=== PATIENT | male | born 1955 | race African-American/Black ===

== ENCOUNTER 2016-03-03 11:41 | Inpatient (IN) ==
[2016-03-03] MEDS ORDERED: Albuterol 2.5 MG/3 ML NEBULIZER ONE (12:16)
[2016-03-03] MEDS ORDERED: CeFAZolin Pre 2,000 MG/100 ML 2,000 MG/100 ML BAG IVPB ONE (12:26)
[2016-03-03] MEDS ORDERED: Lidocaine 1% 20 ML MDV ID ONE (12:26)
[2016-03-03] MEDS ORDERED: Albuterol 2.5 MG/3 ML NEBULIZER IH ONE (12:27)
[2016-03-03] MEDS ORDERED: Ringers Solution, Lactated 1,000 ML IVC SCH ×2 (12:30→20:35)
--- NOTE | 2016-03-03 13:05 | History & Physical Report ---
Date of Encounter: 03/03/16 Time of Encounter: 13:05 24 Hour HP Update - Instructions Instructions: If the History and Physical is less than 30 days old and was completed prior to A.M. admission and or procedure and has NOT been updated on calendar day of procedure please complete this update prior to performing procedure. - Update Patient reports changes in Medical Condition: No Changes in assessment/condition: No Changes in Medication: No Preop tests/diagnostics Reviewed: Yes Pre-Op MRSA Screen: Negative Surgery Remains Indicated: Yes Consent for Planned Operative Procedure(s) Verified: Yes - Pre-Operative Checklist Preoperative Checklist Indicated: No Prophylactic Antibiotic Ordered: Yes Home Medications Include Beta Momo: Yes Beta Momo Taken Today (Day of Surgery): No Beta Momo Taken Yesterday (Day Prior to Surgery): Yes Is VTE Prophylaxis Indicated?: Yes
--- NOTE | 2016-03-03 13:12 | Anesthesia Evaluation PreOp ---
Date of Encounter: 03/03/16 Time of Encounter: 13:00 - Past History Planned Operation: ACDF C5-7 Cardiac History: ND, HTN, Hyperlipidemia, Cardiac Stent (Stent X4 , Stent X 10 August 2015, off Brillinta 5 days) Pulmonary History: Former smoker [employer] History: Denies Any Significant HX Other Medical History: Denies Any Significant HX Anesthesia History: No Prior Anesthetic Complications Alcohol Use: occasionally Drug use: none Medications and Allergies Amlodipine Besylate 10 mg PO DAILY 03/03/16 [History] Aspirin 81 mg PO DAILY 03/03/16 [History] Atorvastatin Calcium [Lipitor] 80 mg PO HS 03/03/16 [History] Carvedilol 3.125 mg PO BID 03/03/16 [History] HYDROcodone/Acet 5/325 mg [[place] 5-325 mg] 1 tab PO Q6H PRN 03/03/16 [History] Lisinopril [Zestril] 40 mg PO DAILY 03/03/16 [History] Nitroglycerin [Nitrostat] 0.4 mg SL Q5M PRN 03/03/16 [History] Pantoprazole Sodium [Protonix] 40 mg PO HS 03/03/16 [History] Ticagrelor [Brilinta] 90 mg PO BID 03/03/16 [History] Trazodone HCl 100 mg PO HS 03/03/16 [History] Allergies No Known Allergies Allergy (Verified 03/03/16 12:35) - Meds/Allergy Pre-op Review Medications Reviewed: Yes Allergies Reviewed: Yes Beta Blockers on Current Med List: Yes (took Coreg today 0800) Anesthesia Results - Labs Laboratory Tests 02/25/16 02/25/16 11:55 11:55 Hgb 13.4 Hct 40.7 Plt Count 369 Sodium 139 Potassium 4.3 BUN 12 Creatinine 1.10 - Imaging EKG: report reviewed (SR poss left atrial enlargement) Additional studies: EF 35% Anesthesia Exam O2 Sat Height 1.8 m Height 1.8 m Height 1.8 m Weight 81.193 kg Weight 81.193 kg Weight 81.193 kg O2 Sat by Pulse Oximetry 95 O2 Sat by Pulse Oximetry 95 O2 Sat by Pulse Oximetry 95 Vital Signs Temp Pulse Resp BP Pulse Ox 97.6 F 66 18 119/79 95 03/03/16 12:08 03/03/16 12:08 03/03/16 12:08 03/03/16 12:08 03/03/16 12:08 Height: 6'0 Weight: 181 lbs NPO (# of Hours): MN - HEENT Pupil (Motor): Pupils equal, EOMI Mallampati: III Teeth: Missing, Poor dentition Oral Opening: Less than or equal to 3 - [employer] LOC: Oriented [employer] Motor: Normal RUE, Normal LUE, Normal RLE, Normal LLE, Normal Face [employer] Sensory: Normal: LUE, RLE, LLE, Face, Deficit: RUE (paresthesia shoulder) - Cardiac Rhythm: Regular Murmur: None JVD: No Carotid Bruit: No - Pulmonary Breath Sounds: bilateral Clear Respiratory Effort: Symmetrical Anesthesia Assess/Plan ASA Score: 3 (CAD ND with stent) Modified Blackstone Scale for Level of Consciousness: Cooperative, oriented, and tranquil Anesthetic Plan: General Monitoring Plan: Standard Monitors, A-Line Recovery Plan: PACU (Discussed GA, agrees to proceed)
--- NOTE | 2016-03-03 17:05 | Orthopedic Operative Note ---
Date of procedure: 03/03/16 Pre-op diagnosis: cervical stenosis, cervical radiculopathy Post-op diagnosis: same Operation/Findings: Anterior cervical decompression and fusion C5-C7: The patient was brought to the operating room and placed supine on the operating room table. Successful general endotracheal anesthesia intubation was performed. Neurophysiologic monitoring personnel placed leads on the upper and lower extremities as well as the cranium for EMG monitoring purposes. Appropriate baseline potentials were noted by the neurophysiologic monitoring staff. Colby catheter was placed prior to positioning. Compression boots and stockings were placed for deep vein thrombosis prophylaxis. Padding was also placed all bony prominences including the ulnar nerve near the medial epicondyles of the elbows were appropriately padded. Mild traction was placed on the bilateral shoulders and taped into place. Preoperative antibiotics were administered. The area from the mandible bilaterally to the upper thoraces was prepped and draped in the usual sterile fashion. A transverse incision was made at the level of the cricoid cartilage which is approximately 3 cm in length and extended from the midline of the cervical spine laterally towards the sternocleidomastoid muscle on the left. We then performed standard medial approach to the carotid sheath. Sponges were used to tease the fascial medial to the sternocleidomastoid muscle while carefully controlling and palpating the carotid artery. Using careful dissection we were able to get to the level of the anterior vertebral bodies and longus coli muscles. The spinal needle was placed at the appropriate C5-6 level, and intraoperative radiograph was obtained which was a cervical spine lateral radiograph. The needle and radiograph confirmed we were at the correct C5-6 operative level. We further exposed this level by using Bovie cautery under the medial edge of the longus colli muscles to allow them to be retracted approximately 2 mm laterally on each side. An 11 blade was used to perform anterior discectomy at the appropriate C5-6 level after an initial annulotomy of the anterior longitudinal ligament and annulus was performed. Further disc material was removed with pituitary Rongeurs. Subsequently, Synthes pins were placed at the C5 and C6 vertebral bodies respectively to provide distraction. We then used a Trimline cervical retractor which was placed in both medial and lateral as well as inferior superior direction to allow full visualization of the appropriate disc and vertebral bodies. The Leica microscope was brought to the field and the remainder of the procedure was performed under the guidance of this microscope. Using pituitary rongeurs and small curettes, various micro-instruments, a full discectomy was performed at the appropriate C5-6 level. The posterior longitudinal ligament was encountered and appeared partially calcified. A portion of this ligament was removed. After complete and thorough discectomy and removal of spondylitic material was performed the endplates of the C5 and C6 vertebral bodies were prepared with a bur until allow bleeding of cancellous bone. A 7mm trial graft was evaluated and appeared to fit quite well within the excised C5-6 disc space. A cortico-cancellous allograft of 7 mm was utilized, carefully tapped into place within the excised disc space with the aid of a bone tamp. It was seated approximately 2 mm from the anterior edge of the cortex of the adjacent vertebral bodies. We then turned our attention to the C6-7 level where a similar series of procedures was performed including discectomy, removal of spondylitic material, end plate preparation, and trial grafting. An 8mm trial fit well within the C6-7 disc space. A 8 mm allograft was then placed at C6-7. A cervical plate was then placed on the anterior aspect of the C5, C6, and C7 vertebral bodies. The plate was placed in the midline position after drilling six 13 mm self tapping screws and inserting them. They were locked in place using standard Venture plate maneuvers. At this point a lateral radiograph of the cervical spine was obtained and showed satisfactory position of the graft and plate. The wound was copiously irrigated and bleeders encountered were cauterized using Bovie cautery. Platysma was closed with interrupted 2-0 Vicryl sutures. Running 3-0 Monocryl suture was used for skin closure. Sterile dressing was placed over the neck wound. A cervical collar was placed. The patient was transferred to a hospital bed and extubated. The patient was noted to be fully motor and sensory intact in the recovery room at the end of the procedure. The medications. All sponge instrument and needle counts were correct at the end of the procedure. Anesthesia: GETA Surgeon: Zechariah Farmer Jr Estimated blood loss (cc): 20 Condition: stable Disposition: PACU
[2016-03-03] MEDS: *HR* HYDROmorphone (PF) 1 MG/ML SYRINGE IVP PRN ×4 (17:29→18:13)
--- NOTE | 2016-03-03 18:21 | Anesthesia Evaluation Post Op ---
Date of Encounter: 03/03/16 Time of Encounter: 18:20 - Vital Signs Vital Signs: Vital Signs/O2 Sat/Glucose, Most Current Temp Pulse Resp BP Pulse Ox 03/03/16 18:11 98.5 F 76 18 139/90 98 03/03/16 18:01 72 18 140/85 91 L 03/03/16 17:51 71 16 142/83 93 L 03/03/16 17:41 98.6 F 76 16 155/89 93 L 03/03/16 17:31 72 16 160/95 100 03/03/16 17:21 70 16 155/99 93 L 03/03/16 17:11 98.8 F 78 16 154/95 100 - Lungs Lungs: Clear Ascult./Percussion - Airway Airway: Non-obstructed - Cardiovascular Regular Rate - Mental Status Mental Status: Alert & Oriented, Answers Appropriately - Pain Pain Scale: 0 - Nausea Vomiting Nausea Vomiting: Not Present - Hydration Hydration: Ice chips - Discharge PostOp Status: Transfer Patient to floor
[2016-03-03] MEDS ORDERED: *HR* Morphine 2 MG/ML SYRINGE IVP PRN ×2 (20:35)
[2016-03-03] MEDS ORDERED: Naloxone 0.4 MG/ML INJ IVP PRN (20:35)
[2016-03-03] MEDS ORDERED: Nitroglycerin 0.4 MG TAB.SUBL SL PRN (20:35)
[2016-03-03] MEDS ORDERED: Sennosides 8.6 MG TABLET PO PRN (20:35)
[2016-03-03] MEDS ORDERED: Ondansetron 4 MG/2 ML VIAL IVP PRN (20:35)
[2016-03-03] MEDS ORDERED: traZODone 50 MG TABLET PO SCH (21:00)
[2016-03-03] MEDS: *HR* OxyCODONE Immed Rel 5 MG TABLET PO PRN (21:07)
[2016-03-03] MEDS: *HR* Ticagrelor 90 MG TABLET PO SCH (21:07)
[2016-03-04] MEDS: ceFAZolin 2,000 MG in D5% in Water 100 ML IVPB SCH ×2 (01:34→08:49)
[2016-03-04] MEDS: *HR* OxyCODONE Immed Rel 5 MG TABLET PO PRN ×2 (06:48→13:39)
[2016-03-04] MEDS: *HR* Ticagrelor 90 MG TABLET PO SCH (07:36)
[2016-03-04] MEDS ORDERED: Lisinopril 20 MG TABLET PO SCH (09:00)
[2016-03-04] MEDS ORDERED: amLODIPine 5 MG TABLET PO SCH (09:00)
[2016-03-04] MEDS ORDERED: Aspirin 81 MG TAB.CHEW PO SCH (09:00)
--- NOTE | 2016-03-04 09:10 | Discharge Summary ---
Date of Encounter: 03/04/16 Time of Encounter: 09:07 - Discharge Diagnosis (1) Cervical radiculopathy Priority: Primary Status: Chronic (2) Foraminal stenosis of cervical region Priority: Secondary Status: Chronic - Discharge Medications Prescriptions: OxyCODONE Immed Rel [Roxicodone 5 MG] 5 mg PO Q6HR PRN #60 tablet PRN Reason: Severe Pain Home Medications: Amlodipine Besylate 10 mg PO DAILY 03/03/16 [History] Aspirin 81 mg PO DAILY 03/03/16 [History] Atorvastatin Calcium [Lipitor] 80 mg PO HS 03/03/16 [History] Carvedilol 3.125 mg PO BID 03/03/16 [History] HYDROcodone/Acet 5/325 mg [[place] 5-325 mg] 1 tab PO Q6H PRN 03/03/16 [History] Lisinopril [Zestril] 40 mg PO DAILY 03/03/16 [History] Nitroglycerin [Nitrostat] 0.4 mg SL Q5M PRN 03/03/16 [History] Pantoprazole Sodium [Protonix] 40 mg PO HS 03/03/16 [History] Ticagrelor [Brilinta] 90 mg PO BID 03/03/16 [History] Trazodone HCl 100 mg PO HS 03/03/16 [History] OxyCODONE Immed Rel [Roxicodone 5 MG] 5 mg PO Q6HR PRN #60 tablet 03/04/16 [Rx] Allergies/Adverse Reactions: Allergies No Known Allergies Allergy (Verified 03/03/16 12:35) - Impressions ITS Impressions Cervical Spine X-Ray 03/03/16 00:00 IMPRESSION: Limited study with a metallic density projecting over the C6-7 disc space anteriorly. D/ / 03/03/2016 15:58:24 Kali Villaseñor MD / Anahy Thomson Interpreting Provider: Kali Villaseñor MD Cervical Spine X-Ray 03/03/16 15:26 IMPRESSION: Surgical pins are noted at the C6 and C7 level. Findings were discussed with Dr. Farmer at 3:40 p.m., 03/03/2016. D/ / 03/03/2016 16:10:22 Lake Tuttle MD / Anahy Thomson Interpreting Provider: Lake Tuttle MD Cervical Spine X-Ray 03/03/16 15:41 IMPRESSION: Single lateral view of the cervical spine demonstrates expected postoperative appearance of C5 through C7 anterior cervical fusion. D/ / Lars Servin MD / Lars Servin MD Interpreting Provider: Lars Servin MD Cervical Spine X-Ray 03/04/16 08:06 IMPRESSION: Straightening of the cervical lordosis. Stable alignment of postoperative hardware at C5-6 and C6-7. Marked prevertebral soft tissue swelling measuring upwards of 4 cm at C7 . The findings were sent to the Radiology Results Communication [facility] at 8:32 am on 03/04/2016to be communicated to a licensed caregiver. D/ / 03/04/2016 08:39:36 Lake Ko MD / jeff Interpreting Provider: Lake Ko MD Date of admission: 03/03/16 18:51 Primary care physician: Collin Perrin MD Consults: 03/03/16 20:35 Consult to Occupational Therapy [CONS] Routine Comment: Evaluate, develop and implement POC Consult to Physical Therapy [CONS] Routine Comment: Evaluate, develop and implement POC Consult to Spine Navigator [CONS] [CONS] Routine - Patient Status Disposition: Home, Self-Care Condition: Good Functional capacity at discharge: independent ambulation Overall status at discharge: patient is progressing back to baseline - Discharge Instructions Follow Up With: Collin Perrin MD [Primary Care Provider] - - Diet and Activity Activity: as per physical therapy Diet: advance to your usual diet - Hospital Course Hospital course: Mr. Howell is a 60 year old male The patient had an uneventful postoperative course. Progressed from intravenous analgesic needs to oral analgesic needs only. Remained neurovascularly intact and mobilized satisfactorily. All intraoperative and/or postoperative radiographic studies were satisfactory. Patient is discharged with plan for rehabilitation and follow-up in 2 weeks post discharge on analgesic medication and patient's home medications. - Time Spent with Patient Total time spent providing and/or coordinating discharge services: - VTE Documentation of Mechanical Device: Intermittent pneumatic compression device
[2016-03-04 11:49] VITALS: BP 116/71
== END 2016-03-04 14:13 | disposition home or self-care (01) | DRG 30 ==
LOC: SAMDAY 11:41 → 3NENU 18:51
PROVIDERS: ADMIT Orthopaedic Surgery Orthopaedic Surgery of the Spine; ATTEND Orthopaedic Surgery Orthopaedic Surgery of the Spine

== ENCOUNTER 2016-11-03 13:58 | Inpatient (IN) ==
--- NOTE | 2016-11-03 07:48 | Discharge Summary ---
<SophieFina elaineSabine L - Last Filed: 11/03/16 16:47> Date of Encounter: 11/03/16 - Discharge Diagnosis (1) Status post total hip replacement, left Priority: Primary Status: Acute (2) Arthritis of left hip Priority: Primary Status: Chronic (3) Lumbar radiculitis Priority: Secondary Status: Chronic (4) CAD (coronary artery disease) Priority: Secondary Status: Chronic Comments: On Brilinta. Resume after surgery. Qualifiers: Coronary Disease-Associated Artery/Lesion type: [place] artery [place] vs. transplanted heart: unspecified whether [place] or transplanted heart Associated angina: without angina Qualified Code(s): I25.10 - Atherosclerotic heart disease of [place] coronary artery without angina pectoris (5) Chronic pain Priority: Secondary Status: Chronic Comments: OARRS reviewed. Hold Chronic pain - Percocet 5/325 mg TID prn pain - intermittently RX'ed. Qualifiers: Chronic pain type: other chronic pain Qualified Code(s): G89.29 - Other chronic pain - Discharge Medications Home Medications: Amlodipine Besylate 10 mg PO DAILY 03/03/16 [History] Aspirin 81 mg PO DAILY 03/03/16 [History] Atorvastatin Calcium [Lipitor] 80 mg PO DAILY 03/03/16 [History] Carvedilol 3.125 mg PO BID 03/03/16 [History] Lisinopril [Zestril] 40 mg PO DAILY 03/03/16 [History] Pantoprazole Sodium [Protonix] 40 mg PO DAILY 03/03/16 [History] Ticagrelor [Brilinta] 90 mg PO BID 03/03/16 [History] Aspirin Enteric Coated [Aspirin EC] 325 mg PO DAILY #21 tablet. 11/03/16 [Rx] HYDROcodone/Acet 5/325 mg [[place] 5-325 mg] 1 tab PO Q6H PRN #28 tab 11/03/16 [Rx ] OxyCODONE/APAP 5/325 [Percocet 5/325 MG] 1 each PO Q6HR PRN #28 tablet 11/03/16 [Rx] Trazodone HCl 150 mg PO HS 11/03/16 [History] Allergies/Adverse Reactions: 3 Allergy/AdvReac Type Severity Reaction Status Date / Time No Known Allergies Allergy Verified 11/03/16 14:12 Primary care physician: Collin Perrin MD - Patient Status Disposition: Home Health Service Condition: Good - Discharge Instructions Follow Up With: Collin Perrin MD [Primary Care Provider] - - Hospital Course Hospital course: Mr. Howell is a 61 year old male - Time Spent with Patient Total time spent providing and/or coordinating discharge services: <ZambranoGeoffrey - Last Filed: 11/06/16 06:58> Date of Encounter: 11/06/16 Time of Encounter: 06:57 - Discharge Diagnosis (1) Lumbar radiculitis Priority: Secondary Status: Chronic (2) Status post total hip replacement, left Priority: Primary Status: Acute (3) Arthritis of left hip Priority: Primary Status: Chronic (4) Acute blood loss anemia Priority: Primary Status: Acute (5) CAD (coronary artery disease) Priority: Secondary Status: Chronic Qualifiers: Coronary Disease-Associated Artery/Lesion type: [place] artery [place] vs. transplanted heart: unspecified whether [place] or transplanted heart Associated angina: without angina Qualified Code(s): I25.10 - Atherosclerotic heart disease of [place] coronary artery without angina pectoris (6) Chronic pain Priority: Secondary Status: Chronic Qualifiers: Chronic pain type: other chronic pain Qualified Code(s): G89.29 - Other chronic pain Primary care physician: Collin Perrin MD - Patient Status Functional capacity at discharge: uses cane/walker Overall status at discharge: patient is progressing back to baseline - Hospital Course Hospital course: Mr. Howlel is a 61 year old male Status post left total hip replacement The patient had an uneventful postoperative course. They received antibiotics and physical therapy and were discharged in stable condition. There will follow -up in the office in 2 weeks. - Time Spent with Patient Total time spent providing and/or coordinating discharge services:
--- NOTE | 2016-11-03 14:04 | History & Physical Report ---
Date of Encounter: 11/03/16 Time of Encounter: 14:04 24 Hour HP Update - Instructions Instructions: If the History and Physical is less than 30 days old and was completed prior to A.M. admission and or procedure and has NOT been updated on calendar day of procedure please complete this update prior to performing procedure. - Update Patient reports changes in Medical Condition: No Changes in examination, assessment, or condition: No Changes in Medication: No Preop tests/diagnostics Reviewed: Yes Surgery Remains Indicated: Yes Consent for Planned Operative Procedure(s) Verified: Yes - Pre-Operative Checklist Preoperative Checklist Indicated: No Prophylactic Antibiotic Ordered: Yes Is VTE Prophylaxis Indicated?: Yes
[2016-11-03] MEDS ORDERED: CeFAZolin Pre 2,000 MG/100 ML 2,000 MG/100 ML BAG IVPB ONE (14:16)
[2016-11-03] MEDS ORDERED: Lidocaine -MPF 1% 2 ML VIAL ID ONE (14:16)
[2016-11-03] MEDS ORDERED: Ringers Solution, Lactated 1,000 ML IVC SCH ×2 (14:30→18:37)
[2016-11-03] MEDS ORDERED: Acetaminophen IV 1,000 MG/100 ML INFUS..BTL IVPB ONE (15:06)
[2016-11-03] MEDS ORDERED: *HR* Propofol 200 MG/20 ML VIAL IVP ONE (15:18)
[2016-11-03] MEDS ORDERED: *HR* Midazolam HCl 2 MG/2 ML VIAL ONE (15:18)
[2016-11-03] MEDS ORDERED: *HR* FentaNYL (PF) 100 MCG/2 ML VIAL ONE (15:18)
[2016-11-03] MEDS ORDERED: Lidocaine -MPF 2% 2 ML VIAL ONE (15:19)
[2016-11-03] MEDS ORDERED: Dexamethasone 4 MG/ML VIAL ONE (15:19)
[2016-11-03] MEDS ORDERED: Ondansetron 4 MG/2 ML VIAL ONE (15:19)
--- NOTE | 2016-11-03 15:23 | Anesthesia Evaluation PreOp ---
Date of Encounter: 11/03/16 Time of Encounter: 15:15 - Past History Planned Operation: Left THR Cardiac History: [place] (2016), HTN, Hyperlipidemia, Cardiac Stent (2016 BRUCE X1 LAD EF 40%, off Brillinta 5 days) Pulmonary History: Denies Any Significant HX CARDIAC CARE NURSE History: Denies Any Significant HX Other Medical History: Denies Any Significant HX Anesthesia History: No Prior Anesthetic Complications Alcohol Use: occasionally Drug use: none Medications and Allergies Amlodipine Besylate 10 mg PO DAILY 03/03/16 [History] Aspirin 81 mg PO DAILY 03/03/16 [History] Atorvastatin Calcium [Lipitor] 80 mg PO DAILY 03/03/16 [History] Carvedilol 3.125 mg PO BID 03/03/16 [History] Lisinopril [Zestril] 40 mg PO DAILY 03/03/16 [History] Pantoprazole Sodium [Protonix] 40 mg PO DAILY 03/03/16 [History] Ticagrelor [Brilinta] 90 mg PO BID 03/03/16 [History] Aspirin Enteric Coated [Aspirin EC] 325 mg PO DAILY #21 tablet. 11/03/16 [Rx] HYDROcodone/Acet 5/325 mg [[place] 5-325 mg] 1 tab PO Q6H PRN #28 tab 11/03/16 [Rx ] OxyCODONE/APAP 5/325 [Percocet 5/325 MG] 1 each PO Q6HR PRN #28 tablet 11/03/16 [Rx] Trazodone HCl 150 mg PO HS 11/03/16 [History] 3 Allergy/AdvReac Type Severity Reaction Status Date / Time No Known Allergies Allergy Verified 11/03/16 14:12 - Meds/Allergy Pre-op Review Medications Reviewed: Yes Allergies Reviewed: Yes Beta Blockers on Current Med List: Yes (Took Coreg today 0930) Anesthesia Results - Labs Laboratory Tests 02/25/16 10/21/16 10/21/16 11:55 09:15 09:15 Hgb 12.2 L Hct 37.7 Plt Count 369 Sodium 139 Potassium 4.0 BUN 13 Creatinine 0.98 - Imaging EKG: report reviewed (SR) Additional studies: EF 40% Anesthesia Exam O2 Sat Height 1.8 m Weight 75.296 kg O2 Sat by Pulse Oximetry 95 Vital Signs Temp Pulse Resp BP Pulse Ox 97.7 F 76 18 115/77 95 11/03/16 14:40 11/03/16 14:40 11/03/16 14:40 11/03/16 14:40 11/03/16 14:40 Height: 6'0 Weight: 159 lbs NPO (# of Hours): MN Pain Scale: 0 - HEENT Pupil (Motor): Pupils equal, EOMI Mallampati: II Teeth: Missing Oral Opening: Less than or equal to 3 - CARDIAC CARE NURSE LOC: Oriented CARDIAC CARE NURSE Motor: Normal RUE, Normal LUE, Normal RLE, Normal LLE, Normal Face CARDIAC CARE NURSE Sensory: Normal: RUE, LUE, RLE, LLE, Face - Cardiac Rhythm: Regular Murmur: None JVD: No Carotid Bruit: No - Pulmonary Breath Sounds: bilateral Clear Respiratory Effort: Symmetrical Anesthesia Assess/Plan ASA Score: 3 (CAD [place] HTN) Modified [place] Scale for Level of Consciousness: Cooperative, oriented, and tranquil Anesthetic Plan: General Monitoring Plan: Standard Monitors Recovery Plan: PACU (Discussed GA, agrees to proceed)
[2016-11-03] MEDS ORDERED: Ondansetron 4 MG/2 ML VIAL IVP PRN ×2 (15:33→18:37)
[2016-11-03] MEDS ORDERED: Acetaminophen IV 1,000 MG/100 ML INFUS..BTL ONE (15:34)
--- NOTE | 2016-11-03 16:50 | Physician Discharge Referral ---
Home Health/Hosp Referral Info Transfer to: Home Health Provider in Charge Post Discharge: PCP - Diagnosis (1) Status post total hip replacement, left Priority: Primary Status: Acute (2) Arthritis of left hip Priority: Primary Status: Chronic (3) Lumbar radiculitis Priority: Secondary Status: Chronic (4) CAD (coronary artery disease) Priority: Secondary Status: Chronic (5) Chronic pain Priority: Secondary Status: Chronic - Respiratory Orders None Smoking Cessation: Smoking cessation has been advised. For more information, call the [place] Tobacco Quit Line at 0-421-EWCE-NOW. - Diet/Nutrition Diet/Nutrition Orders: Regular - Activity Activity Orders: Up ad grace, Ambulate, Chair - Services Needed Following services are medically necessary services: Nursing, Home Health Aide, Physical Therapy, Occupational Therapy Home Care Orders: Opsite dressing, leave intact until first post-operative visit. If dressing becomes >50% saturated, contact office, remove dressing and place appropriate dressing in its place. Do not allow for dressing to get wet. [place] in place. To be removed at POW #2. PT: Precautions x 6 weeks Apply cold therapy wrap 3-6x/day for 20 minutes at a time. Encourage ambulation throughout the day and incentive spirometer 10x/hour. Elevate affected extremity above heart as tolerated. Brace: Knee immobilizer at night x 2 weeks. - Transfer Medications Prescriptions: OxyCODONE/APAP 5/325 [Percocet 5/325 MG] 1 each PO Q6HR PRN #28 tablet PRN Reason: Pain Aspirin Enteric Coated [Aspirin EC] 325 mg PO DAILY #21 tablet. HYDROcodone/Acet 5/325 mg [[place] 5-325 mg] 1 tab PO Q6H PRN #28 tab PRN Reason: Pain Home Medications: Amlodipine Besylate 10 mg PO DAILY 03/03/16 [History] Aspirin 81 mg PO DAILY 03/03/16 [History] Atorvastatin Calcium [Lipitor] 80 mg PO DAILY 03/03/16 [History] Carvedilol 3.125 mg PO BID 03/03/16 [History] Lisinopril [Zestril] 40 mg PO DAILY 03/03/16 [History] Pantoprazole Sodium [Protonix] 40 mg PO DAILY 03/03/16 [History] Ticagrelor [Brilinta] 90 mg PO BID 03/03/16 [History] Aspirin Enteric Coated [Aspirin EC] 325 mg PO DAILY #21 tablet. 11/03/16 [Rx] HYDROcodone/Acet 5/325 mg [[place] 5-325 mg] 1 tab PO Q6H PRN #28 tab 11/03/16 [Rx ] OxyCODONE/APAP 5/325 [Percocet 5/325 MG] 1 each PO Q6HR PRN #28 tablet 11/03/16 [Rx] Trazodone HCl 150 mg PO HS 11/03/16 [History] Allergies/Adverse Reactions: 3 Allergy/AdvReac Type Severity Reaction Status Date / Time No Known Allergies Allergy Verified 11/03/16 14:12 Certification: Further, I certify that my clinical findings support that this patient is homebound (i.e. absences from home require considerable and taxing effort and are for medical reasons or christianity services or infrequently or short duration when for other reasons) because: Homebound Reason: Post-surgery restriction and or conditions limit ability to leave home Attestation: My signature below is to certify that this patient is under my care and that I, or nurse practitioner, or a physician's assistant basketball coach working with me, has a face-to -face encounter with this patient.
--- NOTE | 2016-11-03 17:22 | Orthopedic Operative Note ---
Date of procedure: 11/03/16 Pre-op diagnosis: Left hip arthritis Post-op diagnosis: same Procedure: Procedure: Left Total Hip Replacment Estimated blood loss: 200 cc Hardware: Metal and polyethylene replacement. Biomet DM Cup: 56 G7 fin cup Femoral size 12 echo full profile lateralized stem Head: 3 head with Bety Procedural Notes: Grade 4 arthritic changes femoral head acetabular socket. Operative procedure: The patient was brought to the operating room and placed on the operating room table. After general anesthesia was administered the patient was placed in the lateral decubitus position with the operative leg up. All pressure points were padded appropriately and the head was stabilized in the neutral position. The operative extremity was prepped and draped in the sterile surgical fashion patient received IV antibiotic prior to skin incision. A standard posterior approach is made to the operative hip, the incision was made through the skin and subcutaneous tissue hemostasis was obtained with Bovie cautery. Using careful sharp dissection the fascia was identified and incised exposing the external rotators. The external rotators were released off the greater trochanter and tagged with #2 FiberWire suture. The capsule was T'd open and the hip was brought into internal rotation. Patient noted to have grade 4 arthritic changes femoral head. The femoral neck cut was made at the appropriate level. An anterior capsulotomy was performed for the anterior retractor. Soft tissues removed from the acetabulum. Patient noted to have grade 4 arthritic changes acetabulum. Acetabulum was first reamed medially, and then reamed in 15 degrees of anteversion and 45 degrees off the horizontal. It was reamed up to the appropriate size 56 The appropriate-sized 56 acetabular cup was impacted in place in 15 degrees of anteversion and 45 degrees off the horizontal. This had good fit and fixation. The hip was brought back in to internal rotation and prepared with the box order person followed by the canal finder followed by broaching process in 20 degrees anteversion. It was broached up to the appropriate size 12 The femoral implant was impacted in place in 20 degrees of anteversion. Trial reduction found the hip to be stable with 3 head and Bety. The trials were removed and the real implants were impacted in place. The hip was reduced, patient had apparent equal leg lengths. The hip had excellent stability with forward flexion to 90 degrees adduction of 30 degrees and internal rotation of 60 degrees. The hip had no shuck. The hips after 2 minutes with a Betadine saline solution. It was irrigated out with 2 L of pulse irrigation. The hip was closed by the PA. Fascia was closed with a running #2 PDS suture. The deep tissue was irrigated and closed deep with #1 PDS suture superficially with 0 PDS suture and skin was closed with Dermabond and skin hattie. The patient was placed in a sterile dressing and abduction pillow. The patient was extubated and transferred to the recovery room in stable condition. Anesthesia: GETA Surgeon: Geoffrey Zambrano Condition: stable Disposition: PACU
[2016-11-03] MEDS ORDERED: *HR* Enoxaparin 30 MG/0.3 ML SYRINGE SQ SCH (18:00)
[2016-11-03] MEDS: *HR* HYDROmorphone (PF) 1 MG/ML SYRINGE IVP PRN ×3 (18:01→20:07)
[2016-11-03 18:17] LABS: Hematocrit 36.4 % (37.5-50.1); Hemoglobin 11.6 g/dL (12.9-16.9)
--- NOTE | 2016-11-03 18:34 | Anesthesia Evaluation Post Op ---
Date of Encounter: 11/03/16 Time of Encounter: 18:34 - Vital Signs Vital Signs: Last Vital Signs Temp 97.6 F 11/03/16 18:25 Pulse 68 11/03/16 18:25 Resp 12 11/03/16 18:25 BP 141/91 11/03/16 18:25 Pulse Ox 100 11/03/16 18:25 - Lungs Lungs: Clear Ascult./Percussion - Airway Airway: Non-obstructed - Cardiovascular Regular Rate - Mental Status Mental Status: Alert & Oriented, Answers Appropriately - Pain Pain Scale: 4 - Nausea Vomiting Nausea Vomiting: Not Present - Hydration Hydration: Ice chips - Discharge PostOp Status: Transfer Patient to floor
[2016-11-03] MEDS ORDERED: *HR* OxyCODONE Immed Rel 5 MG TABLET PO PRN (18:37)
[2016-11-03] MEDS ORDERED: Sennosides 8.6 MG TABLET PO PRN (18:37)
[2016-11-03] MEDS ORDERED: Naloxone 0.4 MG/ML INJ IVP PRN (18:37)
[2016-11-03] MEDS ORDERED: MOM Conc 10 ML UD.LIQ PO PRN (18:37)
[2016-11-03] MEDS: Ascorbic Acid 500 MG TABLET PO SCH (18:45)
[2016-11-03] MEDS: traZODone 50 MG TABLET PO SCH (20:08)
[2016-11-03] MEDS: *HR* Ticagrelor 90 MG TABLET PO SCH (20:08)
[2016-11-04] MEDS: ceFAZolin 2,000 MG in D5% in Water 100 ML IVPB SCH ×3 (00:27→18:54)
[2016-11-04] MEDS: *HR* OxyCODONE Immed Rel 5 MG TABLET PO PRN ×4 (00:31→20:56)
[2016-11-04] MEDS: *HR* HYDROmorphone (PF) 1 MG/ML SYRINGE IVP PRN (04:12)
[2016-11-04] MEDS: Temazepam 15 MG CAPSULE PO PRN (04:15)
[2016-11-04] MEDS: *HR* Enoxaparin 30 MG/0.3 ML SYRINGE SQ SCH ×2 (05:26→18:14)
--- NOTE | 2016-11-04 06:43 | Orthopedics Progress Note ---
Date of Encounter: 11/04/16 Time of Encounter: 06:43 - Assessment and Plan (1) Lumbar radiculitis Current Visit: No Status: Chronic (2) Status post total hip replacement, left Current Visit: No Status: Acute (3) Arthritis of left hip Current Visit: No Status: Chronic Subjective Interval history: Patient was seen this morning doing well without complaints. Afebrile vital signs stable. Operative extremity: Neurovascularly intact Dressing clean dry and intact Calves nontender Assessment and plan: Continue with postoperative care Hematocrit 36 Objective Vital signs: Vital Signs Temp Pulse Resp BP Pulse Ox 11/04/16 06:36 98.6 F 77 18 113/82 97 11/03/16 20:00 97.2 F L 80 16 131/80 99 11/03/16 19:10 97.7 F 87 16 147/88 99 11/03/16 18:53 99 11/03/16 18:39 68 18 138/88 100 11/03/16 18:25 97.6 F 68 12 141/91 100 11/03/16 18:15 65 20 138/84 100 11/03/16 18:06 66 16 137/83 100 11/03/16 17:56 68 16 133/89 100 11/03/16 17:46 97.4 F L 68 20 135/87 99 11/03/16 14:40 97.7 F 76 18 115/77 95 Intake and Output 11/03/16 11/03/16 11/04/16 15:59 23:59 07:59 Intake Total 0 / 0 Output Total 200 / 200 Balance -200 / -200 Intake: Oral 0 / 0 Output: Urine 0 / 0 Estimated Blood Loss 200 / 200 Other: Weight 75.296 kg - Labs CBC & BMP: 11/03/16 18:09 Labs: Abnormal lab results Hgb 11.6 g/dL (12.9-16.9) L 11/03/16 18:09 Hct 36.4 % (37.5-50.1) L 11/03/16 18:09 - VTE Documentation of Mechanical Device: Venous foot pump, device Consult Discharge Plan - Plan Referrals: Collin Perrin MD [Primary Care Provider] -
[2016-11-04 07:57] LABS: BUN/Creatinine Ratio 9 (6-26); Blood Urea Nitrogen 8 mg/dL (8-26); Calcium 8.5 mg/dL (8.6-10.8); Carbon Dioxide 22 mEq/L (19-29); Chloride 101 mEq/L (98-109); Glucose 154 mg/dL (70-99); Osmolality,Calculated 275 (280-300); Potassium 3.6 mEq/L (3.5-4.5); Sodium 132 mEq/L (136-145); eGFR For African Americans > 60 (> 60); eGFR For Non-African Americans > 60 (> 60)
[2016-11-04 08:20] LABS: Hematocrit 31.3 % (37.5-50.1); Hemoglobin 10.4 g/dL (12.9-16.9)
[2016-11-04] MEDS: amLODIPine 5 MG TABLET PO SCH (08:33)
[2016-11-04] MEDS: *HR* Ticagrelor 90 MG TABLET PO SCH ×2 (08:33→20:51)
[2016-11-04] MEDS: Ascorbic Acid 500 MG TABLET PO SCH ×2 (08:33→18:13)
[2016-11-04] MEDS: Multivit/Ca/Min/Fe/FA 1 TAB TABLET PO SCH (08:33)
[2016-11-04] MEDS: Aspirin 81 MG TAB.CHEW PO SCH (08:34)
[2016-11-04] MEDS: Lisinopril 20 MG TABLET PO SCH (08:34)
--- NOTE | 2016-11-04 12:18 | Event Note ---
Date of Encounter: 11/04/16 Time of Encounter: 12:13 PCR - Left THR 11/04/16 POD#.1 Comorbidities: CAD, Chronic pain Labs: 11/04 - H/H - 10.4.3 Patient seen at bedside. Pain control: Chronic Pain - Percocet 5/325 TID - PRN* - Holding - Getting [place] for home Participating in PT. All questions and concerns addressed. Educated on use of incentive spirometer, ambulation, and hydration. Patient educated on post-operative restrictions and care. Addressed: see above D/C plan: H/H, PT recommending ECF - BSC, Walker, and Cane needed for home - RX printed Goal Home tomorrow.
--- NOTE | 2016-11-04 17:19 | Physician Discharge Referral ---
ExtendedCare Referral Info Transfer To: [facility] Provider in Charge after Transfer: PCP Institutional Level of Care: Skilled - Diagnosis (1) Status post total hip replacement, left Priority: Primary Status: Acute (2) Arthritis of left hip Priority: Primary Status: Chronic (3) Lumbar radiculitis Priority: Secondary Status: Chronic (4) CAD (coronary artery disease) Priority: Secondary Status: Chronic (5) Chronic pain Priority: Secondary Status: Chronic Expected Duration of Placement: < 30 days Prognosis: Good Aware of Diagnosis: Patient Aware of Prognosis: Patient - Transfer Medications Home Medications: Amlodipine Besylate 10 mg PO DAILY 03/03/16 [History] Aspirin 81 mg PO DAILY 03/03/16 [History] Atorvastatin Calcium [Lipitor] 80 mg PO DAILY 03/03/16 [History] Carvedilol 3.125 mg PO BID 03/03/16 [History] Lisinopril [Zestril] 40 mg PO DAILY 03/03/16 [History] Pantoprazole Sodium [Protonix] 40 mg PO DAILY 03/03/16 [History] Ticagrelor [Brilinta] 90 mg PO BID 03/03/16 [History] Aspirin Enteric Coated [Aspirin EC] 325 mg PO DAILY #21 tablet. 11/03/16 [Rx] HYDROcodone/Acet 5/325 mg [[place] 5-325 mg] 1 tab PO Q6H PRN #28 tab 11/03/16 [Rx ] OxyCODONE/APAP 5/325 [Percocet 5/325 MG] 1 each PO Q6HR PRN #28 tablet 11/03/16 [Rx] Trazodone HCl 150 mg PO HS 11/03/16 [History] Allergies/Adverse Reactions: 3 Allergy/AdvReac Type Severity Reaction Status Date / Time No Known Allergies Allergy Verified 11/03/16 14:12 - Respiratory Orders None Smoking Cessation: Smoking cessation has been advised. For more information, call the [place] Tobacco Quit Line at 1-885-MJZL-NOW. - Ancillary Orders May use pressure relief devices daily prn, May go on LORIE w/family/respon democrat w /meds at nurse discretion PRN, May consult with Dentist, Side Door Man, Research Technician PRN - Mobility Orders Chair, Ambulate - Rehabiliation Orders Rehab Potential: Good Rehab Orders: ROM Exercises, Evaluation for Physical Therapy, Evaluation for Occupational Therapy - Treatments Skin tear care topically daily PRN per policy List/Other: Opsite dressing, leave intact until first post-operative visit. If dressing becomes >50% saturated, contact office, remove dressing and place appropriate dressing in its place. Do not allow for dressing to get wet. [place] in place, plan to remove at post-operative day #14-16. Total Hip Joint Precautions x 6 weeks Apply cold therapy wrap 3-6x/day for 20 minutes at a time. Encourage ambulation throughout the day Use Incentive spirometer 10x/hour. Elevate affected extremity above heart as tolerated. Brace: Wear Hip abduction at night x 6 weeks. - Diet Orders Regular CERTIFICATION: I certify that the transfer of the above named patient to an Extended Care Facility is necessary for the continuing treatment of the diagnosis listed. The above information is true and accurate reflection of patient's current condition. Confidential - Redisclosure prohibited without a patient's written consent.
[2016-11-04] MEDS: traZODone 50 MG TABLET PO SCH (20:51)
[2016-11-05] MEDS: *HR* Enoxaparin 30 MG/0.3 ML SYRINGE SQ SCH ×2 (05:13→17:37)
[2016-11-05] MEDS: Temazepam 15 MG CAPSULE PO PRN (05:13)
[2016-11-05] MEDS: *HR* OxyCODONE Immed Rel 5 MG TABLET PO PRN ×2 (05:14→17:36)
[2016-11-05 06:14] LABS: Hematocrit 29.1 % (37.5-50.1); Hemoglobin 9.6 g/dL (12.9-16.9)
[2016-11-05 06:30] LABS: BUN/Creatinine Ratio 7 (6-26); Blood Urea Nitrogen 6 mg/dL (8-26); Calcium 8.6 mg/dL (8.6-10.8); Carbon Dioxide 25 mEq/L (19-29); Chloride 99 mEq/L (98-109); Glucose 160 mg/dL (70-99); Osmolality,Calculated 275 (280-300); Potassium 3.4 mEq/L (3.5-4.5); Sodium 132 mEq/L (136-145); eGFR For African Americans > 60 (> 60); eGFR For Non-African Americans > 60 (> 60)
[2016-11-05] MEDS: Ascorbic Acid 500 MG TABLET PO SCH ×2 (08:45→17:36)
[2016-11-05] MEDS: Aspirin 81 MG TAB.CHEW PO SCH (08:45)
[2016-11-05] MEDS: *HR* Ticagrelor 90 MG TABLET PO SCH ×2 (08:45→20:52)
[2016-11-05] MEDS: Multivit/Ca/Min/Fe/FA 1 TAB TABLET PO SCH (08:45)
[2016-11-05] MEDS: amLODIPine 5 MG TABLET PO SCH (08:45)
[2016-11-05] MEDS: Lisinopril 20 MG TABLET PO SCH (08:45)
--- NOTE | 2016-11-05 13:23 | Orthopedics Progress Note ---
Date of Encounter: 11/05/16 Time of Encounter: 13:22 - Assessment and Plan (1) Lumbar radiculitis Current Visit: No Status: Chronic (2) Status post total hip replacement, left Current Visit: No Status: Acute (3) Arthritis of left hip Current Visit: No Status: Chronic (4) Acute blood loss anemia Current Visit: Yes Status: Acute (5) CAD (coronary artery disease) Current Visit: Yes Status: Chronic Qualifiers: Coronary Disease-Associated Artery/Lesion type: [place] artery [place] vs. transplanted heart: unspecified whether [place] or transplanted heart Associated angina: without angina Qualified Code(s): I25.10 - Atherosclerotic heart disease of [place] coronary artery without angina pectoris (6) Chronic pain Current Visit: Yes Status: Chronic Qualifiers: Chronic pain type: other chronic pain Qualified Code(s): G89.29 - Other chronic pain Subjective Interval history: Patient was seen this morning doing well without complaints. Afebrile vital signs stable. Operative extremity: Neurovascularly intact Dressing clean dry and intact Calves nontender Assessment and plan: Continue with postoperative care Hemoglobin 9.6 Objective Vital signs: Vital Signs Temp Pulse Resp BP Pulse Ox 11/05/16 11:17 92 18 111/71 93 11/05/16 11:15 98.0 F 92 18 111/71 93 11/05/16 06:00 98.6 F 101 20 98/66 97 11/04/16 22:45 99.8 F H 104 14 100/67 95 11/04/16 18:55 99.7 F H 96 16 112/77 93 11/04/16 15:16 99.9 F H 90 18 121/77 96 Intake and Output 11/04/16 11/05/16 11/05/16 23:59 07:59 15:59 Intake Total 550 / 550 Output Total 675 / 675 500 / 500 400 / 400 Balance -125 / -125 -500 / -500 -400 / -400 Intake: Oral 550 / 550 Output: Urine 675 / 675 500 / 500 400 / 400 Other: Weight 76.6 kg Patient Weight 11/05/16 23:59 Weight 76.6 kg - Labs CBC & BMP: 11/05/16 05:45 11/05/16 05:45 Labs: Abnormal lab results Hgb 9.6 g/dL (12.9-16.9) L 11/05/16 05:45 Hct 29.1 % (37.5-50.1) L 11/05/16 05:45 Sodium 132 mEq/L (136-145) L 11/05/16 05:45 Potassium 3.4 mEq/L (3.5-4.5) L 11/05/16 05:45 BUN 6 mg/dL (8-26) L 11/05/16 05:45 Glucose 160 mg/dL (70-99) H 11/05/16 05:45 Calculated Osmolality 275 (280-300) L 11/05/16 05:45 - VTE Documentation of Mechanical Device: Venous foot pump, device Consult Discharge Plan - Plan Referrals: Collin Perrin MD [Primary Care Provider] -
[2016-11-05] MEDS: traZODone 50 MG TABLET PO SCH (20:53)
[2016-11-06] MEDS: *HR* Enoxaparin 30 MG/0.3 ML SYRINGE SQ SCH (04:54)
--- NOTE | 2016-11-06 06:58 | Orthopedics Progress Note ---
Date of Encounter: 11/06/16 Time of Encounter: 06:58 - Assessment and Plan (1) Lumbar radiculitis Current Visit: No Status: Chronic (2) Status post total hip replacement, left Current Visit: No Status: Acute (3) Arthritis of left hip Current Visit: No Status: Chronic (4) Acute blood loss anemia Current Visit: Yes Status: Acute (5) CAD (coronary artery disease) Current Visit: Yes Status: Chronic Qualifiers: Coronary Disease-Associated Artery/Lesion type: [place] artery [place] vs. transplanted heart: unspecified whether [place] or transplanted heart Associated angina: without angina Qualified Code(s): I25.10 - Atherosclerotic heart disease of [place] coronary artery without angina pectoris (6) Chronic pain Current Visit: Yes Status: Chronic Qualifiers: Chronic pain type: other chronic pain Qualified Code(s): G89.29 - Other chronic pain Subjective Interval history: Patient was seen this morning doing well without complaints. Afebrile vital signs stable. Operative extremity: Neurovascularly intact Dressing clean dry and intact Calves nontender Assessment and plan: Continue with postoperative care Discharged today Objective Vital signs: Vital Signs Temp Pulse Resp BP Pulse Ox 11/06/16 06:29 98.2 F 86 16 112/69 96 11/06/16 03:08 97.6 F 79 14 96/61 96 11/05/16 22:30 98.6 F 77 16 100/65 95 11/05/16 20:31 98.5 F 85 16 114/71 97 11/05/16 15:33 98.8 F 105 16 103/65 94 11/05/16 11:17 92 18 111/71 93 11/05/16 11:15 98.0 F 92 18 111/71 93 Intake and Output 11/05/16 11/05/16 11/06/16 15:59 23:59 07:59 Intake Total 100 / 100 400 / 400 720 / 720 Output Total 800 / 800 1600 / 1600 625 / 625 Balance -700 / -700 -1200 / -1200 95 / 95 Intake: Oral 100 / 100 400 / 400 720 / 720 Output: Urine 800 / 800 1600 / 1600 625 / 625 Other: Meal Lunch Percent of Meal Consumed 50% - Labs CBC & BMP: 11/05/16 05:45 11/05/16 05:45 Labs: Abnormal lab results Hgb 9.6 g/dL (12.9-16.9) L 11/05/16 05:45 Hct 29.1 % (37.5-50.1) L 11/05/16 05:45 Sodium 132 mEq/L (136-145) L 11/05/16 05:45 Potassium 3.4 mEq/L (3.5-4.5) L 11/05/16 05:45 BUN 6 mg/dL (8-26) L 11/05/16 05:45 Glucose 160 mg/dL (70-99) H 11/05/16 05:45 Calculated Osmolality 275 (280-300) L 11/05/16 05:45 - VTE Documentation of Mechanical Device: Venous foot pump, device Consult Discharge Plan - Plan Referrals: Collin Perrin MD [Primary Care Provider] -
[2016-11-06] MEDS: *HR* OxyCODONE Immed Rel 5 MG TABLET PO PRN (08:03)
[2016-11-06] MEDS: *HR* Ticagrelor 90 MG TABLET PO SCH (08:03)
[2016-11-06] MEDS: Multivit/Ca/Min/Fe/FA 1 TAB TABLET PO SCH (08:04)
[2016-11-06] MEDS: Aspirin 81 MG TAB.CHEW PO SCH (08:04)
[2016-11-06] MEDS: Lisinopril 20 MG TABLET PO SCH (08:04)
[2016-11-06] MEDS: Ascorbic Acid 500 MG TABLET PO SCH (08:04)
[2016-11-06] MEDS: amLODIPine 5 MG TABLET PO SCH (08:05)
[2016-11-06] MEDS ORDERED: FLUARIX QUAD 2017-18 36MOS UP/PF 0.5 ML SYRINGE IM ONE (09:10)
--- NOTE | 2016-11-06 12:32 | Event Note ---
Date of Encounter: 11/06/16 Time of Encounter: 12:31 PCR - Left THR 11/04/16 POD#.3 Comorbidities: CAD, Chronic pain Labs: 11/04 - H/H - 10.4/31.3 11/06 - 9.6/ - asymptom Patient seen at bedside. Pain control: Chronic Pain - Percocet 5/325 TID - PRN* - Holding - Getting [place] for home Participating in PT. All questions and concerns addressed. Educated on use of incentive spirometer, ambulation, and hydration. Patient educated on post-operative restrictions and care. Addressed: see above D/C plan: H/H, BSC, Walker, and Cane needed for home - RX printed Home today.
[2016-11-06 14:59] VITALS: BP 123/78
== END 2016-11-06 16:28 | disposition home health service (06) | DRG 470 ==
LOC: SAMDAY 13:58 → 3NENU 19:04
PROVIDERS: ADMIT Orthopaedic Surgery; ATTEND Orthopaedic Surgery

== ENCOUNTER 2017-03-23 13:11 | Inpatient (IN) ==
--- NOTE | 2017-03-22 22:30 | Discharge Summary ---
<Holly Roman E - Last Filed: 03/22/17 22:27> Date of Encounter: 03/22/17 - Discharge Diagnosis (1) Osteoarthritis of right hip Priority: Primary Status: Chronic Qualifiers: Osteoarthritis type: unspecified Qualified Code(s): M16.11 - Unilateral primary osteoarthritis, right hip (2) CAD (coronary artery disease) Priority: Secondary Status: Chronic Qualifiers: Coronary Disease-Associated Artery/Lesion type: unspecified vessel or lesion type [place] vs. transplanted heart: unspecified whether [place] or transplanted heart Associated angina: angina presence unspecified Qualified Code(s): I25.10 - Atherosclerotic heart disease of [place] coronary artery without angina pectoris (3) HLD (hyperlipidemia) Priority: Secondary Status: Chronic Qualifiers: Hyperlipidemia type: unspecified Qualified Code(s): E78.5 - Hyperlipidemia , unspecified (4) HTN (hypertension) Priority: Secondary Status: Chronic Qualifiers: Hypertension type: unspecified Qualified Code(s): I10 - Essential (primary ) hypertension (5) [facility] (current) use of antithrombotics/antiplatelets Priority: Secondary Status: Chronic (6) Status post total hip replacement, right Priority: Primary Status: Acute - Discharge Medications Home Medications: Amlodipine Besylate 10 mg PO DAILY 03/03/16 [History] Aspirin 81 mg PO DAILY 03/03/16 [History] Atorvastatin Calcium [Lipitor] 80 mg PO HS 03/03/16 [History] Carvedilol 3.125 mg PO BID 03/03/16 [History] Lisinopril [Zestril] 40 mg PO DAILY 03/03/16 [History] Pantoprazole Sodium [Protonix] 40 mg PO DAILY 03/03/16 [History] Ticagrelor [Brilinta] 90 mg PO BID 03/03/16 [History] Trazodone HCl 150 mg PO HS 11/03/16 [History] HYDROcodone/Acet 5/325 mg [[place] 5-325 mg] 1 tab PO Q4-6H PRN 7 Days #35 tab 12/27 [Rx] Allergies/Adverse Reactions: 3 Allergy/AdvReac Type Severity Reaction Status Date / Time No Known Allergies Allergy Verified 03/23/17 13:59 Primary care physician: PCP NONE - Patient Status Disposition: Home, Self-Care Condition: Good - Discharge Instructions Follow Up With: Holly Roman PAC [Physician Boom Cat Operator] - 04/02/17 1:00 pm Geoffrey Zambrano MD [Partnered Physician] - 04/22/17 5:15 pm NONE,PCP [Primary Care Provider] - Additional Instructions: Discharge Instructions: Total Hip Replacement Please call [facility] ([phone]), your Primary Care Physician, or report to the Emergency Room if you have any of the following symptoms: Nausea, vomiting, fever greater that 101.5, swelling, chest pain, shortness of breath, increased pain/redness/drainage/odor for your incision site, numbness/ tingling, or any other concerning symptoms. ACTIVITY:Weight-bearing as tolerated for 8 weeks with hip dislocation precautions that physical therapy taught you. You may progress as tolerated under the guidance of your physical therapist. You do not need to sleep with a pillow between your legs. You can also seep on the operative side or on your stomach. MEDICATIONS: Upon discharge resume your home medications. Take all the medications as prescribed. Take a stool softener if taking narcotic pain medications. Stool softeners are only effective if you drink enough fluids. Drink 6-8 glass of water or fluids a day, unless this is not allowed for another health problem. Despite using stool softeners, if you haven't had a bowel movement in 3 days, please switch to a gentle laxative. Gentle laxatives are sold over the counter. You should have a bowel movement within 24 hours, if not call the office. You will be discharged from the hospital with a prescription for pain medication. You are encouraged to decrease the use of narcotic pain medication as tolerated. Should you require a refill, please call the office. [facility] prescribes narcotic pain medication for only 4-6 weeks after surgery. If you require pain medication beyond this time period, you may be referred to your Primary Care Physician or to the Pain Clinic for further evaluation. Plan ahead for refills on pain medication as many narcotics either need to be picked up at the office or mailed. It is best to call 48-72 hours in advance of needing a prescription refill so you don't run out of medication. To help control the post-operative pain, you may take NSAIDs (Aleve,Advil, Motrin, ibuprofen, naprosyn) or Tylenol as prescribed on the bottle in addition to the pain medication. ANTICOAGULATION (blood thinners): Continue your Aspirin, Lovenox or Coumadin as prescribed to help prevent a blood clot in the leg or in the lungs. As long as your incision remains dry and you tolerate the NSAIDs (Aleve, Advil, Motrin, Ibuprofen, Naprosyn), it is OK to use the NSAIDS while you are taking your anticoagulation medication. Should your incision start to drain, stop the NSAID and contact our office. Common symptoms of blood clot in the legs include: localized pain, swelling, calf tenderness, redness or discoloration of the skin. Blood clot in the lung symptoms include: shortness of breath, rapid pulse, sweating, and chest pain that worsens with deep breathing, coughing up blood, lightheadedness, feelings of anxiety. If you experience any of these symptoms notify your physician immediately, go to the emergency room, or if having trouble breathing, call 911. WOUND CARE: Leave the dressing on for 7 to 10days. You may change the dressing if it is saturated greater than 50%. Do not get the dressing wet at anytime. Wash your hands with antibacterial soap, rinse and dry prior to any wound care. If you have hattie the visiting nurse or rehab facility can remove the stapes 10-14 days after surgery and place steri-strips across the wound. Leave the steri-strips in place until they fall off on their own. You may let water from the shower run on top of the steri-strips. If you do not have a visiting nurse or rehab facility, you will need to return to the office at 10-14 days for the hattie to be removed. If you have itching or redness around the dressing call the office. FOLLOW-UP: Please follow up with your surgeon in the orthopedic clinic in 6 weeks from the day of surgery. If you have hattie that need to be removed, you will need to come back to the office in 10-14 days from the day of surgery. - Hospital Course Hospital course: Mr. Howell is a 61 year old male - Time Spent with Patient Total time spent providing and/or coordinating discharge services: <Geoffrey Zambrano - Last Filed: 03/26/17 08:07> Date of Encounter: 03/26/17 Time of Encounter: 08:06 - Discharge Diagnosis (1) Lumbar radiculitis Priority: Secondary Status: Chronic (2) Status post total hip replacement, left Priority: Secondary Status: Chronic (3) CAD (coronary artery disease) Priority: Secondary Status: Chronic Qualifiers: Coronary Disease-Associated Artery/Lesion type: [place] artery [place] vs. transplanted heart: unspecified whether [place] or transplanted heart Associated angina: without angina Qualified Code(s): I25.10 - Atherosclerotic heart disease of [place] coronary artery without angina pectoris (4) Chronic pain Priority: Secondary Status: Chronic Qualifiers: Chronic pain type: other chronic pain Qualified Code(s): G89.29 - Other chronic pain (5) Osteoarthritis of right hip Priority: Primary Status: Chronic Qualifiers: Osteoarthritis type: unspecified Qualified Code(s): M16.11 - Unilateral primary osteoarthritis, right hip (6) CAD (coronary artery disease) Priority: Secondary Status: Chronic Qualifiers: Coronary Disease-Associated Artery/Lesion type: unspecified vessel or lesion type [place] vs. transplanted heart: unspecified whether [place] or transplanted heart Associated angina: angina presence unspecified Qualified Code(s): I25.10 - Atherosclerotic heart disease of [place] coronary artery without angina pectoris (7) HLD (hyperlipidemia) Priority: Secondary Status: Chronic Qualifiers: Hyperlipidemia type: unspecified Qualified Code(s): E78.5 - Hyperlipidemia , unspecified (8) HTN (hypertension) Priority: Secondary Status: Chronic Qualifiers: Hypertension type: unspecified Qualified Code(s): I10 - Essential (primary ) hypertension (9) Status post total hip replacement, right Priority: Primary Status: Acute (10) Acute blood loss anemia Priority: Primary Status: Acute Primary care physician: PCP NONE - Patient Status Functional capacity at discharge: uses cane/walker Overall status at discharge: patient is progressing back to baseline - Hospital Course Hospital course: Mr. Howell is a 61 year old male Status post right total hip replacement. Patient with acute blood loss anemia and received 2 units packed red blood cells. Discharge hematocrit is 29,The patient had an uneventful postoperative course. They received antibiotics and physical therapy and were discharged in stable condition. There will follow-up in the office in 2 weeks. - Time Spent with Patient Total time spent providing and/or coordinating discharge services:
--- NOTE | 2017-03-23 14:31 | History & Physical Report ---
Date of Encounter: 03/23/17 Time of Encounter: 14:30 24 Hour HP Update - Instructions Instructions: If the History and Physical is less than 30 days old and was completed prior to A.M. admission and or procedure and has NOT been updated on calendar day of procedure please complete this update prior to performing procedure. - Update Patient reports changes in Medical Condition: No Changes in examination, assessment, or condition: No Changes in Medication: No Preop tests/diagnostics Reviewed: Yes Surgery Remains Indicated: Yes Consent for Planned Operative Procedure(s) Verified: Yes - Pre-Operative Checklist Preoperative Checklist Indicated: No Prophylactic Antibiotic Ordered: Yes Is VTE Prophylaxis Indicated?: Yes
[2017-03-23] MEDS ORDERED: *HR* FentaNYL (PF) 100 MCG/2 ML VIAL ONE ×2 (14:54→17:00)
[2017-03-23] MEDS ORDERED: *HR* Midazolam HCl 2 MG/2 ML VIAL ONE (14:54)
[2017-03-23] MEDS ORDERED: *HR* Propofol 200 MG/20 ML VIAL IVP ONE (14:56)
[2017-03-23] MEDS ORDERED: Lidocaine -MPF 2% 2 ML VIAL ONE ×2 (14:57→15:30)
[2017-03-23] MEDS ORDERED: Ethanol\\Acetic Acid\\Na Ace\\Ben 1,000 ML IRRIG.SOLN IR ONE (15:04)
--- NOTE | 2017-03-23 15:12 | Anesthesia Evaluation PreOp ---
Date of Encounter: 03/23/17 Time of Encounter: 15:10 - Past History Planned Operation: R robotic THR Cardiac History: HTN, Cardiac Stent (CAD, s/p stents x 5, EF 40%) Pulmonary History: Smoker (on occasion) [employer]INTER History: Denies Any Significant HX Other Medical History: Denies Any Significant HX Anesthesia History: No Prior Anesthetic Complications, Past Anesthesia (LTHR, ACDF C5-7) Alcohol Use: occasionally Drug use: none Medications and Allergies Amlodipine Besylate 10 mg PO DAILY 03/03/16 [History] Aspirin 81 mg PO DAILY 03/03/16 [History] Atorvastatin Calcium [Lipitor] 80 mg PO HS 03/03/16 [History] Carvedilol 3.125 mg PO BID 03/03/16 [History] Lisinopril [Zestril] 40 mg PO DAILY 03/03/16 [History] Pantoprazole Sodium [Protonix] 40 mg PO DAILY 03/03/16 [History] Ticagrelor [Brilinta] 90 mg PO BID 03/03/16 [History] Trazodone HCl 150 mg PO HS 11/03/16 [History] HYDROcodone/Acet 5/325 mg [Marydel 5-325 mg] 1 tab PO Q4-6H PRN 7 Days #35 tab 12/27 [Rx] 3 Allergy/AdvReac Type Severity Reaction Status Date / Time No Known Allergies Allergy Verified 03/23/17 13:59 - Meds/Allergy Pre-op Review Medications Reviewed: Yes Allergies Reviewed: Yes Beta Blockers on Current Med List: Yes If Beta Blockers taken, Date/Time (Last Dose taken): 9am today Anesthesia Results - Labs Laboratory Tests 10/21/16 10/21/16 11/05/16 09:15 09:15 05:45 WBC 10.9 Hgb 9.6 L Hct 29.1 L Plt Count 369 PT 9.4 INR 0.9 APTT 28.0 Sodium Potassium Chloride Carbon Dioxide BUN Creatinine Glucose 11/05/16 05:45 WBC Hgb Hct Plt Count PT INR APTT Sodium 132 L Potassium 3.4 L Chloride 99 Carbon Dioxide 25 BUN 6 L Creatinine 0.82 Glucose 160 H - Imaging EKG: report reviewed (NSR) Anesthesia Exam O2 Sat Height 1.8 m Height 1.8 m Height 1.8 m Weight 75.296 kg Weight 75.296 kg Weight 75.296 kg O2 Sat by Pulse Oximetry 98 O2 Sat by Pulse Oximetry 98 Vital Signs Temp Pulse Resp BP Pulse Ox 98.2 F 69 18 122/78 98 03/23/17 13:34 03/23/17 13:34 03/23/17 13:34 03/23/17 13:34 03/23/17 13:34 Height: 1.8m Weight: 75kg NPO (# of Hours): >8 - HEENT Pupil (Motor): Pupils equal, EOMI Mallampati: II Teeth: Prosthesis (upper partial) Oral Opening: Greater than 3 - 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
[2017-03-23] MEDS ORDERED: *HR* Rocuronium Bromide 50 MG/5 ML VIAL ONE (15:30)
[2017-03-23] MEDS ORDERED: EPHEDrine 50 MG/ML VIAL ONE (15:49)
[2017-03-23] MEDS ORDERED: *HR* PHENYLEPHRINE 1,000 MCG/10 ML SYRINGE IVP ONE (15:53)
[2017-03-23] MEDS ORDERED: MORPHINE SUL Oral CONC 10 MG/0.5 ML ORAL.SYG SL PRN (15:59)
[2017-03-23] MEDS ORDERED: *HR* Promethazine 25 MG/ML VIAL IVP PRN (15:59)
[2017-03-23] MEDS ORDERED: Ketorolac 30 MG/ML VIAL ONE (16:05)
[2017-03-23] MEDS ORDERED: Dexamethasone 4 MG/ML VIAL ONE (16:05)
[2017-03-23] MEDS ORDERED: ceFAZolin 2,000 MG in Water for inj. (sterile) 20 ML IVP ONE (16:10)
--- NOTE | 2017-03-23 16:34 | Orthopedic Operative Note ---
Date of procedure: 03/23/17 Pre-op diagnosis: Right hip arthritis Post-op diagnosis: same Procedure: Procedure: Right Total Hip Replacment robotic-assisted Estimated blood loss: 300 cc Hardware: Metal and polyethylene replacement. Nubia DM Cup: 60 cup Femoral size8 stem Head: 12 head with Bety Procedural Notes: Patient with a operative leg 70 mm shorter than the nonoperative leg Grade 4 arthritic changes femoral head acetabular socket, procedure performed with robotic assistance. Operative procedure: The patient was brought to the operating room and placed on the operating room table. After general anesthesia was administered the patient was placed in the lateral decubitus position with the operative leg up. All pressure points were padded appropriately and the head was stabilized in the neutral position. The operative extremity was prepped and draped in the sterile surgical fashion patient received IV antibiotic prior to skin incision. 3 Steinmann pins were placed in the iliac crest 3 cm proximal to the anterior superior iliac spine this was for the robotic-assisted sensor. This was done through a small 2 cm incision. A standard posterior approach is made to the operative hip, the incision was made through the skin and subcutaneous tissue hemostasis was obtained with Bovie cautery. Using careful sharp dissection the fascia was identified and incised exposing the external rotators. The femoral checkpoint was placed leg length was measured at this time utilizing robotic assistance. The external rotators were released off the greater trochanter and tagged with # 2 FiberWire suture. The capsule was T'd open and the hip was brought into internal rotation. Patient noted to have grade 4 arthritic changes femoral head. The femoral neck cut was made at the appropriate level roughly 18 mm proximal to the lesser trochanter aced on preoperative templating. An anterior capsulotomy was performed for the anterior retractor. Soft tissues removed from the acetabulum. Patient noted to have grade 4 arthritic changes acetabulum. The acetabulum checkpoint was placed confirmed. The acetabulum was then mapped with robotic assistance. Based on the preoperative plan the acetabulum was reamed in one step with a 59 reamer. The 59 acetabulum was impacted with robotic assistance and 40 degrees of abduction and 20 degrees of anteversion. The hip was brought back in to internal rotation and prepared with the box toe buffer followed by the canal finder followed by the reaming process to a size 8/ 9 broaching process in 20 degrees anteversion. It was broached up to the appropriate size 8. Trial reduction revealed leg lengths close to normal. The femoral implant was impacted in place in 20 degrees of anteversion. Trial reduction found the hip to be stable with 12 head and Bety. The trials were removed and the real implants were impacted in place. The hip was reduced, patient had robotic confirmed leg length of 5 mm shorter than the contralateral side. The hip had excellent stability with forward flexion to 90 degrees adduction of 30 degrees and internal rotation of 60 degrees. The hip had no shuck. The hips after 2 minutes with a Betadine saline solution. It was irrigated out with 2 L of pulse irrigation. The checkpoints were removed, Steinmann pins were removed. The hip was closed by the PA. The deep tissue was irrigated and closed deep with #1 PDS suture superficially with 0 PDS suture and skin was closed with Dermabond and zip tie. The patient was placed in a sterile dressing and abduction pillow. The patient was extubated and transferred to the recovery room in stable condition. Anesthesia: spinal Surgeon: Geoffrey Zambrano Was there an registered dental assistant rda present: No Estimated blood loss (cc): 300 Condition: stable Disposition: PACU
[2017-03-23] MEDS ORDERED: Ketamine *HR* 500 MG/10 ML MDV ONE (17:00)
[2017-03-23 17:33] LABS: Hematocrit 32.6 % (37.5-50.1); Hemoglobin 10.7 g/dL (12.9-16.9)
--- NOTE | 2017-03-23 17:38 | Anesthesia Evaluation Post Op ---
Date of Encounter: 03/23/17 Time of Encounter: 17:37 - Vital Signs Vital Signs: Vital Signs/O2 Sat, Most Current Temp Pulse Resp BP Pulse Ox 98.2 F 68 14 101/66 99 03/23/17 17:09 03/23/17 17:29 03/23/17 17:29 03/23/17 17:29 03/23/17 17:29 - Lungs Lungs: Clear Ascult./Percussion - Airway Airway: Non-obstructed - Cardiovascular Regular Rate - Pain Pain Scale: 10 (C/o pain only when asked. No grimacing, vss, sleeping comfortably unless awakened. ) - Nausea Vomiting Nausea Vomiting: Not Present - Hydration Hydration: Ice chips, Has not voided - Discharge PostOp Status: Transfer Patient to floor
[2017-03-23] MEDS ORDERED: CeFAZolin Premix DUPLEX 2,000 MG/50 ML BAG IVPB SCH (18:00)
[2017-03-23] MEDS ORDERED: *HR* Enoxaparin 30 MG/0.3 ML SYRINGE SQ SCH (18:00)
[2017-03-23] MEDS ORDERED: Sennosides 8.6 MG TABLET PO PRN (18:00)
[2017-03-23] MEDS ORDERED: Naloxone 0.4 MG/ML INJ IVP PRN (18:00)
[2017-03-23] MEDS ORDERED: Temazepam 15 MG CAPSULE PO PRN (18:00)
[2017-03-23] MEDS ORDERED: MOM Conc 10 ML UD.LIQ PO PRN (18:00)
[2017-03-23] MEDS ORDERED: Ondansetron 4 MG/2 ML VIAL IVP PRN (18:00)
[2017-03-23] MEDS ORDERED: Ringers Solution, Lactated 1,000 ML IVC SCH (18:00)
[2017-03-23] MEDS: Ascorbic Acid 500 MG TABLET PO SCH (18:45)
[2017-03-23] MEDS ORDERED: *HR* OxyCODONE Immed Rel 5 MG TABLET PO PRN (18:49)
[2017-03-23] MEDS: *HR* Enoxaparin 30 MG/0.3 ML SYRINGE SQ SCH (18:54)
[2017-03-23] MEDS: CeFAZolin Premix DUPLEX 2,000 MG/50 ML BAG IVPB SCH (18:54)
[2017-03-23] MEDS: *HR* OxyCODONE Immed Rel 5 MG TABLET PO PRN (18:56)
[2017-03-23] MEDS: traZODone 50 MG TABLET PO SCH (19:59)
[2017-03-23] MEDS: *HR* Ticagrelor 90 MG TABLET PO SCH (19:59)
[2017-03-24] MEDS: CeFAZolin Premix DUPLEX 2,000 MG/50 ML BAG IVPB SCH (03:10)
[2017-03-24] MEDS: *HR* OxyCODONE Immed Rel 5 MG TABLET PO PRN (03:15)
[2017-03-24] MEDS: *HR* Enoxaparin 30 MG/0.3 ML SYRINGE SQ SCH ×2 (06:15→18:14)
--- NOTE | 2017-03-24 06:15 | Orthopedics Progress Note ---
Date of Encounter: 03/24/17 Time of Encounter: 06:15 - Assessment and Plan (1) Lumbar radiculitis Current Visit: No Status: Chronic (2) Status post total hip replacement, left Current Visit: No Status: Chronic (3) CAD (coronary artery disease) Current Visit: No Status: Chronic Qualifiers: Coronary Disease-Associated Artery/Lesion type: [place] artery [place] vs. transplanted heart: unspecified whether [place] or transplanted heart Associated angina: without angina Qualified Code(s): I25.10 - Atherosclerotic heart disease of [place] coronary artery without angina pectoris (4) Chronic pain Current Visit: No Status: Chronic Qualifiers: Chronic pain type: other chronic pain Qualified Code(s): G89.29 - Other chronic pain (5) Osteoarthritis of right hip Current Visit: No Status: Chronic Qualifiers: Osteoarthritis type: unspecified Qualified Code(s): M16.11 - Unilateral primary osteoarthritis, right hip (6) CAD (coronary artery disease) Current Visit: No Status: Chronic Qualifiers: Coronary Disease-Associated Artery/Lesion type: unspecified vessel or lesion type [place] vs. transplanted heart: unspecified whether [place] or transplanted heart Associated angina: angina presence unspecified Qualified Code(s): I25.10 - Atherosclerotic heart disease of [place] coronary artery without angina pectoris (7) HLD (hyperlipidemia) Current Visit: No Status: Chronic Qualifiers: Hyperlipidemia type: unspecified Qualified Code(s): E78.5 - Hyperlipidemia , unspecified (8) HTN (hypertension) Current Visit: No Status: Chronic Qualifiers: Hypertension type: unspecified Qualified Code(s): I10 - Essential (primary ) hypertension (9) Status post total hip replacement, right Current Visit: No Status: Acute Subjective Interval history: Patient was seen this morning doing well without complaints. Afebrile vital signs stable. Operative extremity: Neurovascularly intact Dressing clean dry and intact Calves nontender Assessment and plan: Continue with postoperative care Hematocrit 32 Objective Vital signs: Vital Signs Temp Pulse Resp BP Pulse Ox 03/24/17 03:36 97.7 F 71 18 93/59 99 03/23/17 23:27 98.0 F 80 17 115/80 99 03/23/17 21:00 97.7 F 65 16 119/81 100 03/23/17 20:17 99 03/23/17 20:00 97.7 F 68 16 103/64 99 03/23/17 19:02 98.0 F 65 15 102/63 98 03/23/17 18:22 97.1 F L 61 14 97/66 99 03/23/17 18:00 98.0 F 63 14 97/64 98 03/23/17 17:39 99.0 F 66 14 102/64 98 03/23/17 17:29 68 14 101/66 99 03/23/17 17:19 70 14 114/71 99 03/23/17 17:09 98.2 F 74 16 130/83 98 03/23/17 14:02 98.2 F 69 18 122/78 98 03/23/17 13:34 98.2 F 69 18 122/78 98 Intake and Output 03/23/17 03/23/17 03/24/17 15:59 23:59 07:59 Intake Total 50 / 50 750 / 750 Output Total 300 / 300 400 / 400 Balance -250 / -250 350 / 350 Intake: IV Fluids 50 / 50 Ancef Premix DUPLEX 2,000 mg In 50 / 50 50 ml @ 100 mls/hr IVPB Q8H [facility] Rx#:[id number] Oral 0 / 0 750 / 750 Output: Urine 400 / 400 Estimated Blood Loss 300 / 300 Other: Weight 75.296 kg 76.2 kg Patient Weight 03/24/17 23:59 Weight 76.2 kg - Labs CBC & BMP: 03/23/17 17:22 Labs: Abnormal lab results Hgb 10.7 g/dL (12.9-16.9) L 03/23/17 17:22 Hct 32.6 % (37.5-50.1) L 03/23/17 17:22 - VTE Documentation of Mechanical Device: Venous foot pump, device Consult Discharge Plan - Plan Referrals: NONE,PCP [Primary Care Provider] -
[2017-03-24 06:56] LABS: BUN/Creatinine Ratio 11 (6-26); Blood Urea Nitrogen 10 mg/dL (8-23); Calcium 8.7 mg/dL (8.6-10.3); Carbon Dioxide 23 mEq/L (23-29); Chloride 104 mEq/L (98-107); Glucose 120 mg/dL (70-105); Osmolality,Calculated 278 (280-300); Potassium 3.9 mEq/L (3.5-5.1); Sodium 134 mEq/L (136-145); eGFR For African Americans > 60 (> 60); eGFR For Non-African Americans > 60 (> 60)
[2017-03-24] MEDS: Ascorbic Acid 500 MG TABLET PO SCH ×2 (08:11→18:13)
[2017-03-24] MEDS ORDERED: Acetaminophen IV 1,000 MG/100 ML INFUS..BTL IVPB PRN (08:30)
--- NOTE | 2017-03-24 11:50 | Event Note ---
Date of Encounter: 03/24/17 Time of Encounter: 12:00 PCR- POD#1 R THR Robotic Juan Manuel PCR - Patient seen at bedside. Pain control: Adequate Participating in PT. All questions and concerns addressed. Educated on use of incentive spirometer, ambulation, and hydration. Patient educated on post-operative restrictions and care. Addressed: Patient wishes to have [place] rather than Oxycodone. Will trial if needed for pain control. D/C plan: Outpatient
[2017-03-24] MEDS: amLODIPine 5 MG TABLET PO SCH (12:12)
[2017-03-24] MEDS: Aspirin 81 MG TAB.CHEW PO SCH (12:12)
[2017-03-24] MEDS: Multivit/Ca/Min/Fe/FA 1 TAB TABLET PO SCH (12:13)
[2017-03-24] MEDS: Lisinopril 20 MG TABLET PO SCH (12:13)
[2017-03-24] MEDS: *HR* Ticagrelor 90 MG TABLET PO SCH ×2 (12:13→19:49)
[2017-03-24] MEDS: traZODone 50 MG TABLET PO SCH (19:48)
[2017-03-24] MEDS: *HR* HYDROcodone/Acet 5/325 mg TABLET PO PRN (19:54)
[2017-03-25] MEDS: *HR* HYDROcodone/Acet 5/325 mg TABLET PO PRN ×4 (05:02→21:08)
[2017-03-25] MEDS: *HR* Enoxaparin 30 MG/0.3 ML SYRINGE SQ SCH ×2 (05:02→16:53)
[2017-03-25 05:36] LABS: Hematocrit 24.1 % (37.5-50.1); Hemoglobin 7.8 g/dL (12.9-16.9)
--- NOTE | 2017-03-25 05:53 | Orthopedics Progress Note ---
Date of Encounter: 03/25/17 Time of Encounter: 05:52 - Assessment and Plan (1) Lumbar radiculitis Current Visit: No Status: Chronic (2) Status post total hip replacement, left Current Visit: No Status: Chronic (3) CAD (coronary artery disease) Current Visit: No Status: Chronic Qualifiers: Coronary Disease-Associated Artery/Lesion type: [place] artery [place] vs. transplanted heart: unspecified whether [place] or transplanted heart Associated angina: without angina Qualified Code(s): I25.10 - Atherosclerotic heart disease of [place] coronary artery without angina pectoris (4) Chronic pain Current Visit: No Status: Chronic Qualifiers: Chronic pain type: other chronic pain Qualified Code(s): G89.29 - Other chronic pain (5) Osteoarthritis of right hip Current Visit: No Status: Chronic Qualifiers: Osteoarthritis type: unspecified Qualified Code(s): M16.11 - Unilateral primary osteoarthritis, right hip (6) CAD (coronary artery disease) Current Visit: No Status: Chronic Qualifiers: Coronary Disease-Associated Artery/Lesion type: unspecified vessel or lesion type [place] vs. transplanted heart: unspecified whether [place] or transplanted heart Associated angina: angina presence unspecified Qualified Code(s): I25.10 - Atherosclerotic heart disease of [place] coronary artery without angina pectoris (7) HLD (hyperlipidemia) Current Visit: No Status: Chronic Qualifiers: Hyperlipidemia type: unspecified Qualified Code(s): E78.5 - Hyperlipidemia , unspecified (8) HTN (hypertension) Current Visit: No Status: Chronic Qualifiers: Hypertension type: unspecified Qualified Code(s): I10 - Essential (primary ) hypertension (9) Status post total hip replacement, right Current Visit: No Status: Acute (10) Acute blood loss anemia Current Visit: No Status: Acute Subjective Interval history: Patient was seen this morning doing well without complaints. Afebrile vital signs stable. Operative extremity: Neurovascularly intact Dressing clean dry and intact Calves nontender Assessment and plan: Continue with postoperative care Hematocrit 24 2 units packed blood cells Objective Vital signs: Vital Signs Temp Pulse Resp BP Pulse Ox 03/25/17 00:21 99.7 F H 85 16 111/68 98 03/24/17 19:57 98.9 F 77 16 144/74 92 03/24/17 15:24 99.3 F 70 18 120/73 97 03/24/17 10:58 99.0 F 76 16 115/70 98 03/24/17 06:21 97.4 F L 61 18 119/75 94 Intake and Output 03/24/17 03/24/17 03/25/17 15:59 23:59 07:59 Intake Total 1020 / 1020 300 / 300 Output Total 1500 / 1500 200 / 200 1200 / 1200 Balance -480 / -480 100 / 100 -1200 / -1200 Intake: IV Fluids 100 / 100 Ofirmev 1,000 mg/100 ml 1,000 100 / 100 mg In 100 ml @ 400 mls/hr IVPB Q6H PRN Rx#:[id number] Oral 920 / 920 300 / 300 Output: Urine 1500 / 1500 200 / 200 1200 / 1200 Other: Meal Lunch Percent of Meal Consumed 95% # Voids 1 - Labs CBC & BMP: 03/25/17 05:13 03/24/17 06:17 Labs: Abnormal lab results Hgb 7.8 g/dL (12.9-16.9) L 03/25/17 05:13 Hct 24.1 % (37.5-50.1) L 03/25/17 05:13 Sodium 134 mEq/L (136-145) L 03/24/17 06:17 Glucose 120 mg/dL (70-105) H 03/24/17 06:17 Calculated Osmolality 278 (280-300) L 03/24/17 06:17 - VTE Documentation of Mechanical Device: Venous foot pump, device Consult Discharge Plan - Plan Referrals: NONE,PCP [Primary Care Provider] -
[2017-03-25] MEDS ORDERED: Furosemide 20 MG/2 ML VIAL IVP ONE ×2 (05:56→15:15)
[2017-03-25 06:02] LABS: BUN/Creatinine Ratio 9 (6-26); Blood Urea Nitrogen 7 mg/dL (8-23); Calcium 8.9 mg/dL (8.6-10.3); Carbon Dioxide 27 mEq/L (23-29); Chloride 103 mEq/L (98-107); Glucose 117 mg/dL (70-105); Osmolality,Calculated 281 (280-300); Potassium 3.7 mEq/L (3.5-5.1); Sodium 136 mEq/L (136-145); eGFR For African Americans > 60 (> 60); eGFR For Non-African Americans > 60 (> 60)
[2017-03-25] MEDS: Multivit/Ca/Min/Fe/FA 1 TAB TABLET PO SCH (07:52)
[2017-03-25] MEDS: Aspirin 81 MG TAB.CHEW PO SCH (07:53)
[2017-03-25] MEDS: *HR* Ticagrelor 90 MG TABLET PO SCH ×2 (07:53→21:01)
[2017-03-25] MEDS: amLODIPine 5 MG TABLET PO SCH (07:53)
[2017-03-25] MEDS: Ascorbic Acid 500 MG TABLET PO SCH ×2 (07:53→16:53)
[2017-03-25] MEDS: Lisinopril 20 MG TABLET PO SCH (07:53)
[2017-03-25] MEDS ORDERED: 0.9 % Sodium Chloride 250 ML ONE ×2 (09:42→14:40)
--- NOTE | 2017-03-25 16:40 | Event Note ---
Date of Encounter: 03/25/17 Time of Encounter: 12:25 PCR- POD#2 R THR Robotic Zambrano 03/23/17 PCR - Patient seen at bedside. Labs: H/H - 7.8/24.1 - currently receiving 2 unit RBC Pain control: will add lidoderm patch for added control Participating in PT. All questions and concerns addressed. Educated on use of incentive spirometer, ambulation, and hydration. Patient educated on post-operative restrictions and care. Addressed: see above D/C plan: home health
[2017-03-25] MEDS: traZODone 50 MG TABLET PO SCH (21:01)
[2017-03-26 05:22] LABS: Hematocrit 29.1 % (37.5-50.1); Hemoglobin 9.8 g/dL (12.9-16.9)
[2017-03-26] MEDS: *HR* Enoxaparin 30 MG/0.3 ML SYRINGE SQ SCH (07:03)
[2017-03-26] MEDS: amLODIPine 5 MG TABLET PO SCH (07:43)
[2017-03-26] MEDS: *HR* Ticagrelor 90 MG TABLET PO SCH (07:43)
[2017-03-26] MEDS: *HR* HYDROcodone/Acet 5/325 mg TABLET PO PRN ×2 (07:43→12:49)
[2017-03-26] MEDS: Aspirin 81 MG TAB.CHEW PO SCH (07:43)
[2017-03-26] MEDS: Lisinopril 20 MG TABLET PO SCH (07:43)
[2017-03-26] MEDS: Multivit/Ca/Min/Fe/FA 1 TAB TABLET PO SCH (07:43)
[2017-03-26] MEDS: Ascorbic Acid 500 MG TABLET PO SCH (07:44)
--- NOTE | 2017-03-26 08:08 | Orthopedics Progress Note ---
Date of Encounter: 03/26/17 Time of Encounter: 08:08 - Assessment and Plan (1) Lumbar radiculitis Current Visit: No Status: Chronic (2) Status post total hip replacement, left Current Visit: No Status: Chronic (3) CAD (coronary artery disease) Current Visit: No Status: Chronic Qualifiers: Coronary Disease-Associated Artery/Lesion type: [place] artery [place] vs. transplanted heart: unspecified whether [place] or transplanted heart Associated angina: without angina Qualified Code(s): I25.10 - Atherosclerotic heart disease of [place] coronary artery without angina pectoris (4) Chronic pain Current Visit: No Status: Chronic Qualifiers: Chronic pain type: other chronic pain Qualified Code(s): G89.29 - Other chronic pain (5) Osteoarthritis of right hip Current Visit: No Status: Chronic Qualifiers: Osteoarthritis type: unspecified Qualified Code(s): M16.11 - Unilateral primary osteoarthritis, right hip (6) CAD (coronary artery disease) Current Visit: No Status: Chronic Qualifiers: Coronary Disease-Associated Artery/Lesion type: unspecified vessel or lesion type [place] vs. transplanted heart: unspecified whether [place] or transplanted heart Associated angina: angina presence unspecified Qualified Code(s): I25.10 - Atherosclerotic heart disease of [place] coronary artery without angina pectoris (7) HLD (hyperlipidemia) Current Visit: No Status: Chronic Qualifiers: Hyperlipidemia type: unspecified Qualified Code(s): E78.5 - Hyperlipidemia , unspecified (8) HTN (hypertension) Current Visit: No Status: Chronic Qualifiers: Hypertension type: unspecified Qualified Code(s): I10 - Essential (primary ) hypertension (9) Status post total hip replacement, right Current Visit: No Status: Acute (10) Acute blood loss anemia Current Visit: No Status: Acute Subjective Interval history: Patient was seen this morning doing well without complaints. Afebrile vital signs stable. Operative extremity: Neurovascularly intact Dressing clean dry and intact Calves nontender Assessment and plan: Continue with postoperative care Hematocrit 29 discharged today Objective Vital signs: Vital Signs Temp Pulse Resp BP Pulse Ox 03/26/17 07:10 99.6 F 84 14 121/77 97 03/26/17 00:10 98.1 F 71 16 120/76 98 03/25/17 20:00 98.0 F 76 17 123/76 99 03/25/17 18:00 98.8 F 83 16 103/65 99 03/25/17 15:15 98.7 F 77 16 126/70 98 03/25/17 14:53 99.4 F 80 16 126/70 97 03/25/17 14:38 99.4 F 91 16 126/70 98 03/25/17 11:13 98 F 75 14 112/64 97 03/25/17 09:55 98.8 F 80 14 101/60 98 Intake and Output 03/25/17 03/26/17 03/26/17 23:59 07:59 15:59 Intake Total 496 / 496 Output Total 1175 / 1175 325 / 325 Balance -679 / -679 -325 / -325 Intake: IV Fluids 0 / 0 0.9 % Sodium Chloride 250 ML @ 0 / 0 0 mls/hr .ROUTE .[facility] Rx #:[id number] Oral 200 / 200 Blood Product 296 / 296 Rbcs Leuko Poor As-1 Unit 296 / 296 [id number] Output: Urine 1175 / 1175 325 / 325 Other: Weight 76.6 kg Patient Weight 03/26/17 23:59 Weight 76.6 kg - Labs CBC & BMP: 03/26/17 04:39 03/25/17 05:13 Labs: Abnormal lab results Hgb 9.8 g/dL (12.9-16.9) L D 03/26/17 04:39 Hct 29.1 % (37.5-50.1) L 03/26/17 04:39 BUN 7 mg/dL (8-23) L 03/25/17 05:13 Glucose 117 mg/dL (70-105) H 03/25/17 05:13 - VTE Documentation of Mechanical Device: Venous foot pump, device Consult Discharge Plan - Plan Additional Instructions: Discharge Instructions: Total Hip Replacement Please call [facility] ([phone]), your Primary Care Physician, or report to the Emergency Room if you have any of the following symptoms: Nausea, vomiting, fever greater that 101.5, swelling, chest pain, shortness of breath, increased pain/redness/drainage/odor for your incision site, numbness/ tingling, or any other concerning symptoms. ACTIVITY:Weight-bearing as tolerated for 8 weeks with hip dislocation precautions that physical therapy taught you. You may progress as tolerated under the guidance of your physical therapist. You do not need to sleep with a pillow between your legs. You can also seep on the operative side or on your stomach. MEDICATIONS: Upon discharge resume your home medications. Take all the medications as prescribed. Take a stool softener if taking narcotic pain medications. Stool softeners are only effective if you drink enough fluids. Drink 6-8 glass of water or fluids a day, unless this is not allowed for another health problem. Despite using stool softeners, if you haven't had a bowel movement in 3 days, please switch to a gentle laxative. Gentle laxatives are sold over the counter. You should have a bowel movement within 24 hours, if not call the office. You will be discharged from the hospital with a prescription for pain medication. You are encouraged to decrease the use of narcotic pain medication as tolerated. Should you require a refill, please call the office. [facility] prescribes narcotic pain medication for only 4-6 weeks after surgery. If you require pain medication beyond this time period, you may be referred to your Primary Care Physician or to the Pain Clinic for further evaluation. Plan ahead for refills on pain medication as many narcotics either need to be picked up at the office or mailed. It is best to call 48-72 hours in advance of needing a prescription refill so you don't run out of medication. To help control the post-operative pain, you may take NSAIDs (Aleve,Advil, Motrin, ibuprofen, naprosyn) or Tylenol as prescribed on the bottle in addition to the pain medication. ANTICOAGULATION (blood thinners): Continue your Aspirin, Lovenox or Coumadin as prescribed to help prevent a blood clot in the leg or in the lungs. As long as your incision remains dry and you tolerate the NSAIDs (Aleve, Advil, Motrin, Ibuprofen, Naprosyn), it is OK to use the NSAIDS while you are taking your anticoagulation medication. Should your incision start to drain, stop the NSAID and contact our office. Common symptoms of blood clot in the legs include: localized pain, swelling, calf tenderness, redness or discoloration of the skin. Blood clot in the lung symptoms include: shortness of breath, rapid pulse, sweating, and chest pain that worsens with deep breathing, coughing up blood, lightheadedness, feelings of anxiety. If you experience any of these symptoms notify your physician immediately, go to the emergency room, or if having trouble breathing, call 911. WOUND CARE: Leave the dressing on for 7 to 10days. You may change the dressing if it is saturated greater than 50%. Do not get the dressing wet at anytime. Wash your hands with antibacterial soap, rinse and dry prior to any wound care. If you have hattie the visiting nurse or rehab facility can remove the stapes 10-14 days after surgery and place steri-strips across the wound. Leave the steri-strips in place until they fall off on their own. You may let water from the shower run on top of the steri-strips. If you do not have a visiting nurse or rehab facility, you will need to return to the office at 10-14 days for the hattie to be removed. If you have itching or redness around the dressing call the office. FOLLOW-UP: Please follow up with your surgeon in the orthopedic clinic in 6 weeks from the day of surgery. If you have hattie that need to be removed, you will need to come back to the office in 10-14 days from the day of surgery. Referrals: Holly Roman PAC [Physician Assistant Elementary Teacher] - 04/02/17 1:00 pm Geoffrey Zambrano MD [Partnered Physician] - 04/22/17 5:15 pm NONE,PCP [Primary Care Provider] -
[2017-03-26 12:24] VITALS: BP 104/63
--- NOTE | 2017-03-26 18:37 | Event Note ---
Date of Encounter: 03/26/17 Time of Encounter: 13:30 PCR- POD#2 R THR Robotic Zambrano 03/23/17 PCR - Patient seen at bedside. Labs: Received 2 unit RBC on 03/25 for postoperative anemia Pain control: adequate Participating in PT. All questions and concerns addressed. Educated on use of incentive spirometer, ambulation, and hydration. Patient educated on post-operative restrictions and care. Addressed: see above D/C plan: home with home health today
--- NOTE | 2017-03-26 18:39 | Physician Discharge Referral ---
Home Health/Hosp Referral Info Transfer to: Home Health Attending Provider: Dr Zambrano - Diagnosis (1) Osteoarthritis of right hip Priority: Primary Status: Chronic (2) CAD (coronary artery disease) Priority: Secondary Status: Chronic (3) HLD (hyperlipidemia) Priority: Secondary Status: Chronic (4) HTN (hypertension) Priority: Secondary Status: Chronic (5) MCFP (current) use of antithrombotics/antiplatelets Priority: Secondary Status: Chronic (6) Status post total hip replacement, right Priority: Primary Status: Acute - Respiratory Orders Smoking Cessation: Smoking cessation has been advised. For more information, call the [place] Tobacco Quit Line at 2-922-OKZX-NOW. - Dressing/Wound Care Site: right hip Type of Dressing/Treatments w/Frequency: Opsite placed. Keep dressing intact until first follow up appointment. If > 50% saturated, notify office, remove dressing and place appropriate dressing back in place. Leave Zipline intact. Opsite dressing is water resistant, not water- proof. OK to shower, but do not get dressing wet. - Diet/Nutrition Diet/Nutrition Orders: Regular - Activity Activity Orders: Up ad grace, Ambulate, Chair, Walker Activity: List: Total Hip replacement Precautions Apply cold therapy 3-6x/day for 20 minutes at a time. Encourage ambulation throughout the day and incentive spirometer 10x/hour. Elevate affected extremity as tolerated. Brace: Wear hip abduction pillow when laying/sleeping - Services Needed Following services are medically necessary services: Nursing, Home Health Aide, Physical Therapy, Occupational Therapy - Transfer Medications Home Medications: Amlodipine Besylate 10 mg PO DAILY 03/03/16 [History] Aspirin 81 mg PO DAILY 03/03/16 [History] Atorvastatin Calcium [Lipitor] 80 mg PO HS 03/03/16 [History] Carvedilol 3.125 mg PO BID 03/03/16 [History] Lisinopril [Zestril] 40 mg PO DAILY 03/03/16 [History] Pantoprazole Sodium [Protonix] 40 mg PO DAILY 03/03/16 [History] Ticagrelor [Brilinta] 90 mg PO BID 03/03/16 [History] Trazodone HCl 150 mg PO HS 11/03/16 [History] HYDROcodone/Acet 5/325 mg [[place] 5-325 mg] 1 tab PO Q4-6H PRN 7 Days #35 tab 12/27 [Rx] Allergies/Adverse Reactions: 3 Allergy/AdvReac Type Severity Reaction Status Date / Time No Known Allergies Allergy Verified 03/23/17 13:59 Certification: Further, I certify that my clinical findings support that this patient is homebound (i.e. absences from home require considerable and taxing effort and are for medical reasons or moravian services or infrequently or short duration when for other reasons) because: Homebound Reason: Post-surgery restriction and or conditions limit ability to leave home Attestation: My signature below is to certify that this patient is under my care and that I, or nurse practitioner, or a physician credit assistant working with me, has a face-to- face encounter with this patient.
== END 2017-03-26 15:15 | disposition home or self-care (01) | DRG 470 ==
LOC: SAMDAY 13:11 → 3NENU 18:12
PROVIDERS: ADMIT Orthopaedic Surgery; ATTEND Orthopaedic Surgery